=== PATIENT | male | born 1990 | race Asian ===

== ENCOUNTER 2019-03-26 12:35 | Inpatient (IN) | payer BC, OTHER ==
[~2019-03-26] VITALS: Ht 180.3 cm; Wt 82.6 kg
--- NOTE | 2019-03-26 12:45 | NUR ---
PATIENT [id number] FROM [facility], TASED BY PD. PER REPORT, VERSED 5MG GIVEN QUALITY ASSURANCE MONITOR BODY. PATIENT AWAKE, ALERT AND ORIENTED, AGITATED
--- NOTE | 2019-03-26 12:50 | NUR ---
DR VALENZUELA AT BEDSIDE
[2019-03-26] MEDS ORDERED: LORAZEPAM INJ 2 MG/ML VIAL ONE ×5 (12:54→19:58)
[2019-03-26] MEDS ORDERED: LORAZEPAM INJ 2 MG/ML VIAL IVP ONE (13:00)
[2019-03-26] MEDS ORDERED: IV NS 0.9% 1,000 ML BAG IV ONE ×3 (13:00→17:30)
[2019-03-26 13:21] LABS: BASOPHILS # (AUTO) 0.1 /CMM (0.0-0.2); BASOPHILS % (AUTO) 0.2 % (0.0-2.0); EOSINOPHILS % (AUTO) 0.1 % (0.0-6.0); HEMATOCRIT 43 % (39-51); HEMOGLOBIN 14.4 g/dL (13.5-17.5); LYMPHOCYTES # (AUTO) 0.8 /CMM (0.8-4.8); LYMPHOCYTES % (AUTO) 3.5 % (20.0-44.0); MEAN CORPUSCULAR HGB CONC 33 g/dl (31.0-36.0); MEAN CORPUSCULAR VOLUME 97 fL (80-96); MONOCYTES % (AUTO) 8.6 % (2.0-12.0); NEUTROPHILS # (AUTO) 20.7 /CMM (1.8-8.9); NEUTROPHILS % (AUTO) 87.6 % (43.0-81.0); PLATELET COUNT (AUTO) 180 /CMM (150-450); RED BLOOD CELL COUNT(AUTO) 4.47 MIL/uL (4.5-6.0); WHITE BLOOD COUNT (AUTO) 23.6 K/uL (4.3-11.0)
[2019-03-26 13:31] LABS: CALCIUM, SERUM 9.7 mg/dL (8.5-10.1); CARBON DIOXIDE 15 mmol/L (21-32); CHLORIDE 104 mmol/L (98-107); CREATININE 2.4 mg/dL (0.6-1.3); GLUCOSE 142 mg/dL (74-106); POTASSIUM 4.6 mmol/L (3.5-5.1); SODIUM SERUM 146 mmol/L (136-145); UREA NITROGEN, BLOOD 21 mg/dL (7-18)
[2019-03-26 13:36] LABS: ACETAMINOPHEN 0 ug/ml (10-30); ALANINE AMINOTRANSFERASE 50 U/L (12-78); ALBUMIN 4.9 g/dL (3.4-5.0); ALCOHOL, BLOOD < 3 mg/dL (0-0); ALKALINE PHOSPHATASE 94 U/L (46-116); ASPARTATE AMINOTRANSFERASE 67 U/L (15-37); BILIRUBIN,DIRECT 0.2 mg/dL (0.0-0.2); BILIRUBIN,TOTAL 1.2 mg/dL (0.2-1.0); SALICYLATE 0.9 mg/dL (2.8-20.0); TOTAL PROTEIN, SERUM 8.2 g/dL (6.4-8.2)
[2019-03-26] MEDS ORDERED: LIDOCAINE 1%-EPI 1:100,000 20 ML VIAL ONE (13:51)
[2019-03-26] MEDS ORDERED: CEFAZOLIN 1 GM in IV D5W 50 ML IV ONE (14:00)
[2019-03-26] MEDS ORDERED: LORAZEPAM INJ 2 MG/ML VIAL IV ONE ×4 (14:00→20:00)
--- NOTE | 2019-03-26 14:15 | NUR ---
DR VALENZUELA AT BEDSIDE
--- NOTE | 2019-03-26 14:20 | NUR ---
WITH NEW ORDER FOR ATIVAN 2MG IV X 1. VERIFIED WITH DR VALENZUELA
[2019-03-26 15:07] LABS: APPEARANCE,URINE Slightly Cloudy (CLEAR); BLOOD, URINE Moderate Ery/uL (NEGATIVE); COLOR,URINE Yellow (YELLOW); PH,URINE 5.5 (5.0-8.0); PROTEIN,URINE 100 mg/dl (NEGATIVE); UGLUCOSE Negative (NEGATIVE)
[2019-03-26 15:08] LABS: BILIRUBIN,URINE Negative (NEGATIVE); KETONES,URINE Trace (NEGATIVE); LEUKOCYTE ESTERASE ,URINE Negative (NEGATIVE); NITRITE, URINE Negative (NEGATIVE); UROBILINOGEN,URINE 0.2 EU/dL (0.2)
--- NOTE | 2019-03-26 15:51 | NUR ---
WITH NEW ORDER FOR ATIVAN 4MG IV. VERIFIED WITH DR. ONEAL. GIVEN ORDERED
[2019-03-26 16:05] LABS: BACTERIA,URINE Few /HPF (None Seen); HYALINE CASTS, URINE Rare /LPF (None Seen); SPERM,URINE Rare /HPF (None Seen); SQUAMOUS EPITHELIAL CELL,UR Few /HPF (None Seen); WBC,URINE 0-2 /HPF (0-3)
--- NOTE | 2019-03-26 17:00 | NUR ---
PATIENT PULLED IV ON LEFT HAND OFF. MINIMAL BLEEDING NOTED, PRESSURE DRESSING PLACED ON SITE. NEW IV PLACED ON RIGHT UPPER ARM, g18.
--- NOTE | 2019-03-26 18:48 | NUR ---
PATIENT RESTING INSIDE ROOM. AWAKE, ALERT AND ORIENTED TO SELF. NO ACUTE DISTRESS. DENIES ANY PAIN OR DISCOMFORT.
[2019-03-26 19:36] LABS: BASOPHILS % (AUTO) 0.1 % (0.0-2.0); HEMATOCRIT 39 % (39-51); HEMOGLOBIN 13.2 g/dL (13.5-17.5); LYMPHOCYTES # (AUTO) 0.7 /CMM (0.8-4.8); LYMPHOCYTES % (AUTO) 3.1 % (20.0-44.0); MEAN CORPUSCULAR HGB CONC 34 g/dl (31.0-36.0); MEAN CORPUSCULAR VOLUME 94 fL (80-96); MONOCYTES # (AUTO) 1.8 /CMM (0.1-1.30); MONOCYTES % (AUTO) 8.1 % (2.0-12.0); NEUTROPHILS % (AUTO) 88.7 % (43.0-81.0); PLATELET COUNT (AUTO) 143 /CMM (150-450); RED BLOOD CELL COUNT(AUTO) 4.13 MIL/uL (4.5-6.0); WHITE BLOOD COUNT (AUTO) 22.6 K/uL (4.3-11.0)
[2019-03-26 19:46] LABS: CALCIUM, SERUM 8.1 mg/dL (8.5-10.1); CREATININE 1.3 mg/dL (0.6-1.3); POTASSIUM 4.4 mmol/L (3.5-5.1)
[2019-03-26] MEDS ORDERED: diphenhydrAMINE HCL 50 MG/ML VIAL ONE (19:58)
[2019-03-26] MEDS ORDERED: OLANZAPINE 10 MG VIAL IM ONE ×2 (19:58→20:00)
[2019-03-26] MEDS ORDERED: diphenhydrAMINE HCL 50 MG/ML VIAL IV ONE (20:00)
--- NOTE | 2019-03-26 20:07 | NUR ---
PT AGITATED, TRYING TO GET OUR OF BED. MD AT BEDSIDE. ORDER ZYPREXA ATIVAN AND BENDARYL FOR AGITATION. PT PLACED ON MONITOR AND NASAL CANNULA 5LPM. NO RESPIRATORY DISTRESS NOTED.
--- NOTE | 2019-03-26 20:53 | NUR ---
REPORT GIVEN TO JULIETA JONES RM 116-2
[2019-03-26 21:00] VITALS: BP 136/80
--- NOTE | 2019-03-26 21:10 | NUR ---
PT GOING TO [facility] 116-1 W/ SITTER.
--- NOTE | 2019-03-26 21:25 | NUR ---
[facility] RN NOTES RECEIVED PATIENT'S REPORT FROM INSURANCE PROFESSIONAL BRAXTON.RECEIVED PATIENT ON [facility]. PATIENT IS A/OX2 WITH CONFUSION AND AGITATION. PATIENT WAS TRYING TO GET OUT OF BED AND WAS RESTRAINTS WITH SOFT WRIST RESTRAINTS. PATIENT WAS CONNECTED TO PACKAGING INSPECTOR WITH HR OS 98. PATIENT IS ON O2 3L VIA NC WITH SPO2 OF 100%, BREATHING NON LABORED, NO SOB AT THIS TIME. IV LINE IS ON RIGHT UPPER ARM G18 INTACT AND PATIENT. SKIN ASSESSMENT HAS BEEN DONE AND PICTURES ARE IN THE CHART. PATIENT HAS A SITTER AT THE BEDSIDE. WILL CONTINUE TO MONITOR PATIENT CLOSELY.
--- NOTE | 2019-03-26 21:25 | NUR ---
PT TRANSFERRED [facility] FLOOR 116-2 VIA ACLS PROTOCOL
[2019-03-26] MEDS ORDERED: Z GUARD REMEDY 2 OZ OINT TP PRN (21:30)
[2019-03-26] MEDS ORDERED: ZOLPIDEM TARTRATE 5 MG TABLET PO PRN (21:30)
[2019-03-26] MEDS ORDERED: ONDANSETRON HCL/PF 4 MG/2 ML VIAL IVP PRN (21:30)
[2019-03-26] MEDS ORDERED: ACETAMINOPHEN 325 MG TABLET PO PRN (21:30)
[2019-03-26] MEDS: IV NS 0.9% 1,000 ML IV PRN (22:35)
[2019-03-27] VITALS: BP 118/76
[2019-03-27] MEDS: LORAZEPAM INJ 2 MG/ML VIAL IV PRN ×2 (02:12→06:21)
[2019-03-27 04:00] VITALS: BP 132/65
--- NOTE | 2019-03-27 06:42 | NUR ---
[facility] RN NOTES PATIENT IS IN BED A/AX2 WITH SOFT WRIST RESTRAINTS. SITTER IS AT THE BEDSIDE. NO SOB, NO PAIN DURING MY SHIFT. PATIENT IS STILL AGITATED WITH HR OF 130'S. ALL SAFETY MEASURES ARE IMPLEMENTED, BED IN LOW, LOCKED POSITION, CALL LIGHT IN REACH. WILL ENDORSE PATIENT CARE TO AM RN FOR RUN LEAD.
[2019-03-27] MEDS: IV NS 0.9% 1,000 ML IV PRN ×2 (06:51→14:01)
[2019-03-27 07:05] LABS: BASOPHILS % (AUTO) 0.2 % (0.0-2.0); HEMATOCRIT 40 % (39-51); HEMOGLOBIN 13.9 g/dL (13.5-17.5); LYMPHOCYTES # (AUTO) 1.3 /CMM (0.8-4.8); MEAN CORPUSCULAR HGB CONC 35 g/dl (31.0-36.0); MEAN CORPUSCULAR VOLUME 93 fL (80-96); MONOCYTES # (AUTO) 1.1 /CMM (0.1-1.30); MONOCYTES % (AUTO) 6.8 % (2.0-12.0); NEUTROPHILS # (AUTO) 13.8 /CMM (1.8-8.9); PLATELET COUNT (AUTO) 142 /CMM (150-450); WHITE BLOOD COUNT (AUTO) 16.2 K/uL (4.3-11.0)
--- NOTE | 2019-03-27 07:05 | NUR ---
ENGINE SERVICE REPAIRER OPENING NOTES RECEIVED PT FROM NIGHTSHIFT RN IN STABLE CONDITION. PT A/O X3, CALM, AND COOPERATIVE. NO SOB OR ACUTE SIGNS OF DISTRESS NOTED. BREATHING IS EVEN AND UNLABORED. PT ON RA AND SATING WELL. HE DENIES ANY PAIN AT THIS TIME. PT NOTED TO BE SINUS TACH ON THE MONITOR WITH A CURRENT HR OF 111. IV TO RIGHT UPPER ARM NOTED TO BE PATENT AND INTACT. NO REDNESS OR SIGNS OF INFILTRATION NOTED. BED IN LOW LOCKED POSITION, SIDE RAILS UP X2, BILATERAL WRIST RESTRAINTS NOTED. GOOD PERIPHERAL PULSES AND CAP REFILL ASSESSED. 1:1 SITTER AT BEDSIDE. HE DENIES ANY SUICIDAL OR HOMICIDAL IDEATIONS AT THIS TIME. WILL CONTINUE TO MONITOR
[2019-03-27 07:20] LABS: CALCIUM, SERUM 8.6 mg/dL (8.5-10.1); CREATININE 1.1 mg/dL (0.6-1.3); PHOSPHORUS 2.2 mg/dL (2.5-4.9); POTASSIUM 3.8 mmol/L (3.5-5.1)
[2019-03-27 08:00] VITALS: BP 148/78
--- NOTE | 2019-03-27 10:45 | NUR ---
MS RN NOTES: MD ORDER (PSYCH CONSULT) DR MCFADDEN AT BEDSIDE AND MADE AWARE OF PT'S RECENT CONDITION AND BEHAVIOR. VERBAL ORDER OBTAINED FROM MD FOR PSYCH CONSULT. DR TERRY SHIELD INSTALLER THIS WEEKEND. FACESHEET FAXED TO [facility] FOR CONSULT. FAX CONFIRMATION RECEIVED
--- NOTE | 2019-03-27 12:49 | NUR ---
MS RN NOTES: ROUNDHENOK (DR. TERRY) MD AT BEDSIDE. MADE AWARE OF PT'S CONDITION AND BEHAVIOR. MD AGREED TO HOLD, CURRENT TX, AND STATES WILL ORDER A FEW MORE MEDS TO REGULATE PT'S MOOD AND BEHAVIOR
[2019-03-27] MEDS ORDERED: K PHOS NEUTRAL 250 MG TABLET PO ONE (13:30)
[2019-03-27] MEDS: DIVALPROEX SODIUM 250 MG TABLET.DR PO SCH ×2 (13:33→16:42)
[2019-03-27 16:00] VITALS: BP 128/83
--- NOTE | 2019-03-27 18:48 | NUR ---
MS RN CLOSING NOTES PT REMAINS STABLE. ALL NEEDS WERE MET DURING SHIFT AND ORDERS CARRIED OUT ACCORDINGLY. ALL DUE MEDS GIVEN. PRN CARE RENDERED. IV REMAINS PATENT AND INTACT. PT CONTINUES TOLERATING IV FLUIDS WELL. NO ACUTE CHANGES IN CONDITION DURING SHIFT. PT CALM AND COOPERATIVE WITH CARE. HE CONTINUES TO DENY ANY SUICIDAL OR HOMICIDAL IDEATION. VSS. SAFETY MEASURES IN PLACE. 1:1 SITTER AT BEDSIDE. WILL ENDORSE TO NIGHTSHIFT RN FOR SHAMAR
--- NOTE | 2019-03-27 19:15 | NUR ---
MS/RN INITIAL NOTES RECEIVED PT IN BED, ALERT AND VERBALLY RESPONSIVE. ON ROOM AIR, NO SOB NOTED. NO C/O PAIN AT THIS TIME. APPEARS CALM AT THIS TIME. WITH ONGOING IVF NS AT 125 ML/HR INFUSING WELL ON ZORAIDA G18 IV, C/D/I. NOTED WITH VINH SOFT WRIST RESTRAINT FOR SAFETY, NO COMPROMISED CIRCULATION OR NEW SKIN TEAR NOTED. SITTER AT BEDSIDE. SAFETY MEASURES IN PLACED. CALL LIGHT WITHIN EASY REACH. WILL CONT TO MONITOR
[2019-03-27 20:00] VITALS: BP 115/72
[2019-03-27] MEDS: OLANZAPINE 5 MG/TAB.RAPDIS PO SCH (21:20)
[2019-03-28 04:00] VITALS: BP 108/59
[2019-03-28] MEDS: IV NS 0.9% 1,000 ML IV PRN ×3 (04:36→21:06)
--- NOTE | 2019-03-28 06:42 | NUR ---
RN NOTES PT IN STABLE CONDITION. NO ACUTE CHANGES THROUGHOUT SHIFT. SAFETY MEASURES AND ASPIRATION PRECAUTION OBSERVED AT ALL TIMES. ALL NEEDS ANTICIPATED. ENDORSED TO AM RN FOR SHAMAR
[2019-03-28 07:33] LABS: BASOPHILS % (AUTO) 0.4 % (0.0-2.0); EOSINOPHILS % (AUTO) 0.7 % (0.0-6.0); HEMATOCRIT 37 % (39-51); LYMPHOCYTES # (AUTO) 1.9 /CMM (0.8-4.8); MEAN CORPUSCULAR HGB CONC 35 g/dl (31.0-36.0); MEAN CORPUSCULAR VOLUME 93 fL (80-96); MONOCYTES % (AUTO) 9.9 % (2.0-12.0); NEUTROPHILS # (AUTO) 7.1 /CMM (1.8-8.9); PLATELET COUNT (AUTO) 130 /CMM (150-450); POTASSIUM 3.9 mmol/L (3.5-5.1); RED BLOOD CELL COUNT(AUTO) 3.96 MIL/uL (4.5-6.0); WHITE BLOOD COUNT (AUTO) 10.2 K/uL (4.3-11.0)
[2019-03-28 07:34] LABS: ALBUMIN 3.1 g/dL (3.4-5.0); CALCIUM, SERUM 8.1 mg/dL (8.5-10.1); CREATININE 0.9 mg/dL (0.6-1.3); MAGNESIUM 1.8 mg/dL (1.8-2.4); PHOSPHORUS 3.1 mg/dL (2.5-4.9); TOTAL PROTEIN, SERUM 5.8 g/dL (6.4-8.2)
--- NOTE | 2019-03-28 07:43 | NUR ---
MS RN OPENING NOTES RECEIVED PT FROM NIGHTSHIFT RN IN STABLE CONDITION. PT A/O X3, CALM AND COOPERATIVE WITH CARE. NO SOB OR ACUTE SIGNS OF DISTRESS NOTED. BREATHING IS EVEN AND UNLABORED. PT ON RA AND SATING WELL. HE DENIES ANY PAIN AT THIS TIME. IV TO RIGHT UPPER ARM NOTED TO BE PATENT AND INTACT. NO REDNESS OR SIGNS OF INFILTRATION NOTED. BED IN LOW LOCKED POSITION, SIDE RAILS UP X2, BILATERAL WRIST RESTRAINTS NOTED. GOOD PERIPHERAL PULSES AND CAP REFILL ASSESSED. 1:1 SITTER AT BEDSIDE. HE DENIES ANY SUICIDAL OR HOMICIDAL IDEATIONS AT THIS TIME. WILL CONTINUE TO MONITOR Addendum: 03/28/19 at 1943 by KAYY CARNEY RN MS RN OPENING NOTES RECEIVED PT FROM DAY SHIFT RN IN STABLE CONDITION. PT IS ASLEEP, . NO SOB OR ACUTE SIGNS OF DISTRESS NOTED. HE DENIES ANY PAIN AT THIS TIME. IV TO RIGHT UPPER ARM NOTED TO BE PATENT AND INTACT. NO REDNESS OR SIGNS OF INFILTRATION NOTED. BED IN LOW LOCKED POSITION, SIDE RAILS UP X2, BILATERAL WRIST RESTRAINTS NOTED. GOOD PERIPHERAL PULSES AND CAP REFILL ASSESSED. BREATHING IS EVEN AND UNLABORED. PT ON RA AND SATING WELL. 1:1 SITTER AT BEDSIDE. WILL CONTINUE TO MONITER. HE DENIES ANY SUICIDAL OR HOMICIDAL IDEATIONS AT THIS TIME. WILL CONTINUE TO MONITOR
[2019-03-28 08:00] VITALS: BP 130/69
[2019-03-28] MEDS: DIVALPROEX SODIUM 250 MG TABLET.DR PO SCH ×3 (08:26→16:28)
[2019-03-28] MEDS: OLANZAPINE 5 MG/TAB.RAPDIS PO SCH ×2 (08:26→21:08)
--- NOTE | 2019-03-28 11:15 | NUR ---
MS RN NOTES: ABNORMAL LAB REPORT MD MCFADDEN MADE AWARE OF INCREASING AST AND ALT. US OF GALLBLADDER ORDERED. ALSO MADE AWARE [place] [address]. ORDERS OBTAINED TO INCREASE PT'S NS INFUSION FROM 125ML/HR TO 150ML/HR
[2019-03-28] MEDS ORDERED: NEOMY SULF/BACITRAC ZN/POLY 15 GM TUBE TP PRN (12:30)
[2019-03-28] MEDS: HYDROCODONE/APAP 10/325MG 1 EA TABLET PO PRN ×4 (15:08→22:25)
[2019-03-28 16:00] VITALS: BP 105/45
--- NOTE | 2019-03-28 18:46 | NUR ---
MS RN CLOSING NOTES PT REMAINS STABLE. ALL NEEDS WERE MET DURING SHIFT AND ORDERS CARRIED OUT ACCORDINGLY. ALL DUE MEDS GIVEN. PRN CARE RENDERED. IV REMAINS PATENT AND INTACT. PT CONTINUES TOLERATING IV FLUIDS WELL. NO ACUTE CHANGES IN CONDITION DURING SHIFT. PT CALM AND COOPERATIVE WITH CARE. HE CONTINUES TO DENY ANY SUICIDAL OR HOMICIDAL IDEATION. VSS. SAFETY MEASURES IN PLACE. 1:1 SITTER AT BEDSIDE. WILL ENDORSE TO NIGHTSNEFT RN FOR SHAMAR Addendum: 03/28/19 at 3 by KAYY CARNEY RN MS RN OPENING NOTES PT REMAINS STABLE. HE CONTINUES TO DENY ANY SUICIDAL OR HOMICIDAL IDEATION. VS STABLE. SAFETY MEASURES IN PLACE. 1:1 SITTER AT BEDSIDE. NO ACUTE DISTRESS NOTED. NO S.S OF SOB. WILL CONTINUE TO MONITER.
[2019-03-28 20:08] VITALS: BP 104/57
[2019-03-29 00:31] VITALS: BP 100/66
[2019-03-29] MEDS: HYDROCODONE/APAP 10/325MG 1 EA TABLET PO PRN ×2 (02:55→11:44)
--- NOTE | 2019-03-29 03:06 | NUR ---
ROTOR ASSEMBLER NOTES: DURING MEDICATION ADMINISTRATION, ERROR OCCURRED WITH SCANNING. NORCO 10/325 WAS GIVEN AT 2108 AND 0255 ONLY.
[2019-03-29 04:00] VITALS: BP 100/67
[2019-03-29] MEDS: IV NS 0.9% 1,000 ML IV PRN ×3 (04:22→21:21)
[2019-03-29 04:27] VITALS: BP 102/47
[2019-03-29 06:53] LABS: BASOPHILS % (AUTO) 0.5 % (0.0-2.0); EOSINOPHILS % (AUTO) 1.6 % (0.0-6.0); HEMATOCRIT 33 % (39-51); HEMOGLOBIN 11.6 g/dL (13.5-17.5); LYMPHOCYTES # (AUTO) 1.9 /CMM (0.8-4.8); LYMPHOCYTES % (AUTO) 24.6 % (20.0-44.0); MEAN CORPUSCULAR HGB CONC 35 g/dl (31.0-36.0); MEAN CORPUSCULAR VOLUME 94 fL (80-96); MONOCYTES # (AUTO) 0.8 /CMM (0.1-1.30); MONOCYTES % (AUTO) 10.2 % (2.0-12.0); NEUTROPHILS # (AUTO) 4.8 /CMM (1.8-8.9); NEUTROPHILS % (AUTO) 63.1 % (43.0-81.0); PLATELET COUNT (AUTO) 107 /CMM (150-450); WHITE BLOOD COUNT (AUTO) 7.6 K/uL (4.3-11.0)
[2019-03-29 07:15] LABS: ALBUMIN 2.8 g/dL (3.4-5.0); BILIRUBIN,DIRECT 0.2 mg/dL (0.0-0.2); BILIRUBIN,TOTAL 0.9 mg/dL (0.2-1.0); CALCIUM, SERUM 7.8 mg/dL (8.5-10.1); CREATININE 0.8 mg/dL (0.6-1.3); MAGNESIUM 1.6 mg/dL (1.8-2.4); PHOSPHORUS 3.3 mg/dL (2.5-4.9); POTASSIUM 3.9 mmol/L (3.5-5.1); TOTAL PROTEIN, SERUM 5.4 g/dL (6.4-8.2)
--- NOTE | 2019-03-29 07:28 | NUR ---
RN CLOSING NOTES: PT STABLE DURING MY SHIFT. CONTINOUS MONITERING 1:1 SITTER THROUGHOUT THE NIGHT. PT VITALS STABLE. CALL LIGHT WITHIN REACH. NO SIGNS OF ACUTE DISTRESS. ENDORSED TO THE DAYSHIFT NURSE TO CONTINUE TO MONITER.
--- NOTE | 2019-03-29 07:30 | NUR ---
RN NOTES RECEIVED PATIENT IN BED, ASLEEP BUT EASILY AWAKEN TO VERBAL STIMULI, ABLE TO RESPONDS APPROPRIATELY BUT PATIENT WITHDRAWN, ABLE TO MAKE NEEDS KNOWN, NOT ON ANY FORM OF DISTRESS, ON ROOM AIR, BREATHING EVEN AND UNLABORED, SATING FINE, NO COMPLAINTS OF PAIN OF ANY KIND. IV ACCESS ON THE ZORAIDA G 18: IN PLACE AND INTACT, PATENT ON FLUSHING. WITH ON GOING IVF OF NS AT 150 CC/HR. PATIENT ENCOURAGE TO CALL FOR HELP AND ASSISTANCE, CALL LIGHT PLACED WITHIN REACH, SAFETY MEASURES OBSERVED AND MAINTAINED,SRX2 RAISED, BED PLACED IN LOW AND LOCKED POSITION, SITTER AT BEDSIDE, WILL CONTINUE TO MONITOR PATIENT CLOSELY
[2019-03-29 08:00] VITALS: BP 101/54
[2019-03-29] MEDS: DIVALPROEX SODIUM 250 MG TABLET.DR PO SCH (08:46)
[2019-03-29] MEDS: OLANZAPINE 5 MG/TAB.RAPDIS PO SCH (08:46)
--- NOTE | 2019-03-29 09:32 | NUR ---
WOUND CARE CONSULT: PT PRESENTS WITH CLOSED LACERATION TO RT ARM, PRESENT ON ADMISSION. RECOMMENDATIONS MADE FOR SKIN PROTECTION. DISCUSSED WITH NURSING STAFF. WILL SEE PRN.
[2019-03-29] MEDS: Magnesium 1GM/D5W 100ML PREMIX 100 ML IV SCH ×2 (11:42→13:03)
--- NOTE | 2019-03-29 11:54 | NUR ---
Social service consult requested by Yolanda Albright DO because pt. is from a recovery center and for amphetamine overdose. Pt. is a 28 year old male who was admitted to [facility] for acute renal failure. SW met with pt. at bedside. Pt. was laying in his bed and appeared tired and sleepy. Pt. is oriented x 3. Pt. states that he lives at [facility], a sober living center for men, at [address] [place] [address]. . His cell phone number is . Pt.s emergency contact is his father, Blayne Zarate, at . Pt. states that he has been living at the sober living facility for 2 weeks and believes he will be returning there after discharge. 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 SW inquired with pt. regarding his history of alcohol and drug use. Pt. states he has been using alcohol since high school, and has been using drugs for 10 years. When SW asked which drugs he uses, pt. replied all of them anything. Pt. shared he has not used marijuana lately. Pt. denies a history of psychiatric diagnosis, and pt. denied suicidal ideation at this time. YUMI inquired with pt. regarding alcohol treatment programs, and pt. declined referrals because he will be returning to the [facility]. caisson worker provided the following additional alcohol treatment program referrals: [facility], [address] [address] [id number], [facility], [address], [facility] [address], and [facility], [address] [place], [address]. in case pt. is in need of more treatment options in the future. No other services needed at this time. SW is available if needed.
[2019-03-29 16:00] VITALS: BP 106/58
--- NOTE | 2019-03-29 19:25 | NUR ---
RN NOTES ENDORSED PATIENT FOR CONTINUITY OF CARE. NO ACUTE CHANGES WITHIN THE SHIFT. NOT ON ANY FORM OF DISTRESS. ALL NURSING NEEDS ATTENDED AND MET. SAFETY MEASURES KEPT IN PLACE. CALL LIGHT PLACED WITHIN REACH AT ALL TIME
[2019-03-29 20:00] VITALS: BP 115/68
--- NOTE | 2019-03-29 20:00 | NUR ---
PT REFUSING TELE MONITOR., TIMI AMOR DNP MADE AWARE.
[2019-03-30] VITALS: BP 129/71
[2019-03-30] MEDS: HYDROCODONE/APAP 10/325MG 1 EA TABLET PO PRN ×4 (00:27→09:23)
--- NOTE | 2019-03-30 03:29 | NUR ---
RECEIVED PHONE CALL FROM [facility] REGARDING CRITICAL VALUE CK-MB OF 200.7, MARIA EUGENIA CHINCHILLA DNP SCHOOL INSPECTOR MADE AWARE WITH NO NEW ORDERS.
[2019-03-30] MEDS: IV NS 0.9% 1,000 ML IV PRN (04:16)
[2019-03-30 07:00] LABS: BASOPHILS % (AUTO) 0.6 % (0.0-2.0); EOSINOPHILS % (AUTO) 2.9 % (0.0-6.0); HEMATOCRIT 34 % (39-51); HEMOGLOBIN 12.1 g/dL (13.5-17.5); LYMPHOCYTES # (AUTO) 1.9 /CMM (0.8-4.8); LYMPHOCYTES % (AUTO) 29.8 % (20.0-44.0); MEAN CORPUSCULAR HGB CONC 36 g/dl (31.0-36.0); MEAN CORPUSCULAR VOLUME 93 fL (80-96); MONOCYTES # (AUTO) 0.6 /CMM (0.1-1.30); MONOCYTES % (AUTO) 10.2 % (2.0-12.0); NEUTROPHILS # (AUTO) 3.5 /CMM (1.8-8.9); NEUTROPHILS % (AUTO) 56.5 % (43.0-81.0); PLATELET COUNT (AUTO) 123 /CMM (150-450); RED BLOOD CELL COUNT(AUTO) 3.62 MIL/uL (4.5-6.0); WHITE BLOOD COUNT (AUTO) 6.3 K/uL (4.3-11.0)
[2019-03-30 07:37] LABS: BILIRUBIN,DIRECT 0.1 mg/dL (0.0-0.2); BILIRUBIN,TOTAL 0.6 mg/dL (0.2-1.0); CALCIUM, SERUM 8.4 mg/dL (8.5-10.1); CREATININE 0.7 mg/dL (0.6-1.3); MAGNESIUM 1.6 mg/dL (1.8-2.4); PHOSPHORUS 4.5 mg/dL (2.5-4.9); POTASSIUM 4.1 mmol/L (3.5-5.1); TOTAL PROTEIN, SERUM 5.8 g/dL (6.4-8.2)
--- NOTE | 2019-03-30 07:40 | NUR ---
INITIAL RN NOTES RECEIVED PATIENT IN BED AND ABLE TO RESPOND TO VERBAL AND TACTILE STIMULI. PATIENT IS ALERT AND ORIENTED X3-4. SPEECH IS CLEAR. PT NOTED WITH PAIN ON THE LEFT WRIST 8/10. PAIN MEDICATION WAS GIVEN ORDERED. NO CARDIAC DISTRESS AT THIS TIME. PT ON ROOM AIR AND TOLERATING WELL. NO S/S OF RESPIRATORY DISTRESS. PT NOTED WITH ZORAIDA 18GAUGE. INTACT AND PATENT, FLUSHING WELL. ALL NEEDS ANTICIPATED. KEPT CLEAN AND DRY. CALL LIGHT WITHIN REACHED. SAFETY MAINTAINED AT ALL TIMES, BED IN LOW LOCKED POSITION. WILL CONTINUE TO MONITOR FOR ANY CHANGES IN CONDITION
[2019-03-30 08:00] VITALS: BP 102/51
[2019-03-30] MEDS ORDERED: IV NS 0.9% 1,000 ML IV PRN (08:00)
[2019-03-30] MEDS: Magnesium 1GM/D5W 100ML PREMIX 100 ML IV SCH ×2 (10:03→11:14)
--- NOTE | 2019-03-30 18:20 | NUR ---
RN NOTES PT LEFT AT 1336. REFUSED TO WAIT FOR DISCHARGE ORDERS. MD MADE AWARE. IV SITE AND ID BAND REMOVED. INCIDENT REPORT WILL BE FILED.
== END 2019-03-30 13:37 | disposition home or self-care (01) | DRG 682 ==
LOC: ER 12:37 → TELE1 21:20 → MEDSG1 03-27 09:54 → TELE1 03-28 21:13 → MEDSG1 03-29 06:57 → TELE1 03-29 22:07
PROVIDERS: ADMIT Nurse Practitioner Acute Care
DX: N17.0 Acute kidney failure with tubular necrosis (principal); G93.41 Metabolic encephalopathy; M62.82 Rhabdomyolysis; E87.0 Hyperosmolality and hypernatremia; E44.0 Moderate protein-calorie malnutrition; E87.2 Acidosis; F19.10 Other psychoactive substance abuse, uncomplicated; F17.200 Nicotine dependence, unspecified, uncomplicated; R74.0 Nonspecific elevation of levels of transaminase and lactic acid dehydrogenase [LDH]; D72.829 Elevated white blood cell count, unspecified; F39 Unspecified mood [affective] disorder
CPT/HCPCS: 36415; 76705-TC; 80048-TC; 80053-TC; 80061-TC; 80074; 80076-TC; 80305; 81000-TC; 82550-TC; 83735-TC; 84100-TC; 85025-TC; 87081-TC; G0378; G0480; J0690; J1200; J2060; J3475; J3490; J7030; J7060